=== PATIENT | female | born 1935 | race Caucasian/White ===

== ENCOUNTER 2020-08-02 19:36 | Emergency (ER) | payer OTHER, MEDICARE ==
[~2020-08-02] VITALS: Ht 167.6 cm; Wt 86.2 kg
[~2020-08-02 19:36] MED LIST: BACTRIM DS TAB1 EACH PO; LEVOTHYROXINE88 MCG PO; LIOTHYRONINE S25 MCG PO; MELOXICAM15 MG PO; PRILOSEC OTC20 MG PO; ZYRTEC10 MG PO
[2020-08-02] MEDS ORDERED: CEPHALEXIN500 MG PO (21:46)
== END 2020-08-02 22:15 | disposition home or self-care (01) ==
LOC: ED 19:36
DX: S51.811A Laceration without foreign body of right forearm, initial encounter (principal); E03.9 Hypothyroidism, unspecified; Z79.899 Other long term (current) drug therapy; W01.198A Fall on same level from slipping, tripping and stumbling with subsequent striking against other object, initial encounter
CPT/HCPCS: 12002; 99282-25

== ENCOUNTER 2021-07-17 16:32 | Emergency (ER) | payer MEDICARE ==
[~2021-07-17] VITALS: Ht 167.6 cm; Wt 86.2 kg
[~2021-07-17 16:32] MED LIST changes: +CEPHALEXIN500 MG PO
== END 2021-07-17 22:01 | disposition home or self-care (01) ==
LOC: ED 16:32
DX: U07.1 COVID-19 (principal); E03.9 Hypothyroidism, unspecified; Z79.899 Other long term (current) drug therapy
CPT/HCPCS: 96374; 99283-25